=== PATIENT | female | born 1970 | race Caucasian/White ===

== ENCOUNTER 2017-07-04 10:01 | Outpatient (CLI) | payer BC | END 2017-07-04 10:02 | disposition home or self-care (01) | LOC: BICULT 10:01 | PROVIDERS: ATTEND Internal Medicine | DX: Z08 Encounter for follow-up examination after completed treatment for malignant neoplasm (principal); Z85.850 Personal history of malignant neoplasm of thyroid; E89.0 Postprocedural hypothyroidism | CPT/HCPCS: 76536 ==

== ENCOUNTER 2018-07-08 15:46 | Outpatient (CLI) | payer BC ==
--- NOTE | 2018-07-08 16:32 | ULT ---
Soft tissue sonogram HISTORY: Thyroid cancer. Reevaluation. COMPARISON: 07/04/2017. FINDINGS: Sonographic evaluation of the anterior neck at the level of the thyroid bed was performed. No residual thyroid tissue is apparent. No enlarged lymph nodes or fluid collections. IMPRESSION: Status post thyroidectomy. No evidence of recurrent mass or thyroid tissue.
== END 2018-07-08 15:47 | disposition home or self-care (01) ==
LOC: BICULT 15:46
PROVIDERS: ATTEND Internal Medicine
DX: Z08 Encounter for follow-up examination after completed treatment for malignant neoplasm (principal); Z90.89 Acquired absence of other organs; Z85.850 Personal history of malignant neoplasm of thyroid
CPT/HCPCS: 76536